=== PATIENT | female | born 1940 | race Caucasian/White ===

== ENCOUNTER → 2016-10-17 | Outpatient (CLI) | payer MEDICARE ==
[~2016-10-17] MED LIST: ASPIR 8181 M1 PO; GLUCOPHAGE500 MG PO; NORCO 5/3251 TABLET PO; PRILOSEC20 MG PO
== END | disposition home or self-care (01) ==
LOC: CDC 14:37
DX: R00.1 Bradycardia, unspecified (principal); R94.31 Abnormal electrocardiogram [ECG] [EKG]
CPT/HCPCS: 93000

== ENCOUNTER 2016-10-22 09:07 | Day surgery (SDC) | payer OTHER ==
[~2016-10-22] VITALS: Ht 142.2 cm; Wt 50.0 kg
[2016-10-22 09:34] VITALS: BP 128/62
[2016-10-22 10:25] LABS: POINT-OF-CARE METER ID UU14174212
[2016-10-22 11:48] LABS: POINT-OF-CARE METER ID UU13113675
[2016-10-22 12:05] VITALS: BP 144/70
[2016-10-22 13:05] VITALS: BP 146/63
== END 2016-10-22 13:27 | disposition home or self-care (01) ==
LOC: SDC
PROVIDERS: Surgery
PROC: 0DH63UZ Insertion of Feeding Device into Stomach, Percutaneous Approach (ICD-10-PCS; principal; 2016-10-22)
DX: R13.19 Other dysphagia (principal); E46 Unspecified protein-calorie malnutrition; C01 Malignant neoplasm of base of tongue; I10 Essential (primary) hypertension; K21.9 Gastro-esophageal reflux disease without esophagitis; Z79.82 Long term (current) use of aspirin; Z79.84 Long term (current) use of oral hypoglycemic drugs; Z88.0 Allergy status to penicillin
CPT/HCPCS: 82948; J1580; J3010; J7050; Q0175; S0030

== ENCOUNTER → 2017-04-25 | Outpatient (CLI) | payer MEDICARE, OTHER ==
[~2017-04-25] MED LIST changes: +COMPAZINE10 MG PO; +ONDANSETRON ODT8 MG PO; +OXYCODONE H5 MG/5 ML PO
== END | disposition home or self-care (01) ==
LOC: CDC 10:54
DX: Z01.810 Encounter for preprocedural cardiovascular examination (principal); C01 Malignant neoplasm of base of tongue
CPT/HCPCS: 93000

== ENCOUNTER → 2017-04-29 | Outpatient (CLI) | payer OTHER ==
[~2017-04-29] VITALS: Ht 142.2 cm; Wt 42.2 kg
== END | disposition home or self-care (01) ==
LOC: AMB 11:04
PROC: 0DP64UZ Removal of Feeding Device from Stomach, Percutaneous Endoscopic Approach (ICD-10-PCS; principal; 2017-04-29)
DX: Z43.1 Encounter for attention to gastrostomy (principal); Z85.810 Personal history of malignant neoplasm of tongue; Z92.3 Personal history of irradiation; I10 Essential (primary) hypertension; E11.9 Type 2 diabetes mellitus without complications; K21.9 Gastro-esophageal reflux disease without esophagitis; E78.1 Pure hyperglyceridemia; Z79.82 Long term (current) use of aspirin; Z79.84 Long term (current) use of oral hypoglycemic drugs; Z88.0 Allergy status to penicillin

== ENCOUNTER → 2017-05-15 | Outpatient (CLI) | payer OTHER | END | disposition home or self-care (01) | LOC: OPR 07:28 → EDSTATUS 08:00 → OPR 08:00 | PROVIDERS: Internal Medicine | PROC: 0BDF4ZX Extraction of Right Lower Lung Lobe, Percutaneous Endoscopic Approach, Diagnostic (ICD-10-PCS; principal; 2017-05-15) | DX: R91.8 Other nonspecific abnormal finding of lung field (principal); C01 Malignant neoplasm of base of tongue; E11.9 Type 2 diabetes mellitus without complications; I10 Essential (primary) hypertension; Z79.82 Long term (current) use of aspirin; E78.6 Lipoprotein deficiency; Z88.0 Allergy status to penicillin | CPT/HCPCS: 71045; 77012; 82948; J3010 ==